=== PATIENT | male | born 1975 | race Caucasian/White ===

== ENCOUNTER 2017-12-30 07:54 | Emergency (ER) | payer MEDICAID ==
[~2017-12-30] VITALS: Ht 188 cm; Wt 86.2 kg
[2017-12-30 07:55] VITALS: BP 147/86
== END 2017-12-30 10:12 | disposition home or self-care (01) ==
LOC: ER 07:54
DX: S29.012A Strain of muscle and tendon of back wall of thorax, initial encounter (principal); F17.210 Nicotine dependence, cigarettes, uncomplicated; X50.0XXA Overexertion from strenuous movement or load, initial encounter; Y93.89 Activity, other specified; Y99.8 Other external cause status; Y92.89 Other specified places as the place of occurrence of the external cause
CPT/HCPCS: 71046

== ENCOUNTER 2018-04-09 10:23 | Emergency (ER) | payer MEDICAID ==
[~2018-04-09] VITALS: Ht 188 cm; Wt 82.1 kg
[2018-04-09 10:31] VITALS: BP 120/66
[2018-04-09 11:06] LABS: Urine Bacteria NONE SEEN /hpf (None Seen); Urine Blood Negative /uL (Negative); Urine Mucus FEW (None Seen); Urine Specific Gravity 1.041 (1.001-1.035); Urine WBC 1 /hpf (0 - 3)
== END 2018-04-09 11:04 | disposition home or self-care (01) ==
LOC: EDUNIT# 10:23 → EDBD 10:23 → ER 10:23
DX: N39.0 Urinary tract infection, site not specified (principal); L25.9 Unspecified contact dermatitis, unspecified cause; M10.9 Gout, unspecified; F17.210 Nicotine dependence, cigarettes, uncomplicated
CPT/HCPCS: 81001; 81002

== ENCOUNTER → 2019-03-29 | Emergency (ER) | payer MEDICAID ==
[~2019-03-29] VITALS: Ht 188 cm; Wt 86.2 kg
[~2019-03-29] MED LIST: HYDROcodone-ACET 7.5/325MG TAB PO ONE; KETOROLAC TROMETH 60MG/2ML VIAL IM ONE
[2019-03-29 12:30] VITALS: BP 95/63
== END | disposition home or self-care (01) ==
LOC: ER 11:55
DX: M54.41 Lumbago with sciatica, right side (principal); G89.29 Other chronic pain
CPT/HCPCS: 73502; 96372; 99283; J1885

== ENCOUNTER 2021-04-01 20:13 | Emergency (ER) | payer MEDICAID ==
[~2021-04-01] VITALS: Ht 188 cm; Wt 81.6 kg
[2021-04-01 20:18] VITALS: BP 139/95
== END 2021-04-01 20:55 | disposition left against medical advice (07) ==
LOC: ER 20:16
DX: R42 Dizziness and giddiness (principal); Z53.21 Procedure and treatment not carried out due to patient leaving prior to being seen by health care provider

== ENCOUNTER 2021-06-19 15:08 | Emergency (ER) | payer MEDICAID ==
[~2021-06-19] VITALS: Ht 188 cm; Wt 81.6 kg
[2021-06-19 16:07] VITALS: BP 164/98
[2021-06-19] MEDS ORDERED: IBUP800T27 PO (16:12)
[2021-06-19] MEDS ORDERED: CEPH500C PO (16:12)
[2021-06-19] MEDS ORDERED: IBUPROFEN 800 MG TAB PO ONE (16:15)
== END 2021-06-19 16:36 | disposition home or self-care (01) ==
LOC: ER 15:08
DX: S80.262A Insect bite (nonvenomous), left knee, initial encounter (principal); W57.XXXA Bitten or stung by nonvenomous insect and other nonvenomous arthropods, initial encounter; Y93.89 Activity, other specified; Y92.89 Other specified places as the place of occurrence of the external cause; Y99.8 Other external cause status

== ENCOUNTER 2022-01-23 22:40 | Emergency (ER) | payer MEDICAID ==
[~2022-01-23] VITALS: Ht 185.4 cm; Wt 73.0 kg
[2022-01-23 22:40] VITALS: BP 127/79
[~2022-01-23 22:40] MED LIST changes: +CEPH500C PO; -HYDROcodone-ACET 7.5/325MG TAB PO ONE; +IBUP800T27 PO; -KETOROLAC TROMETH 60MG/2ML VIAL IM ONE
== END 2022-01-24 01:07 | disposition left against medical advice (07) ==
LOC: ER 22:42
DX: S80.262A Insect bite (nonvenomous), left knee, initial encounter (principal); Z53.21 Procedure and treatment not carried out due to patient leaving prior to being seen by health care provider; W57.XXXA Bitten or stung by nonvenomous insect and other nonvenomous arthropods, initial encounter; Y93.89 Activity, other specified; Y92.89 Other specified places as the place of occurrence of the external cause; Y99.8 Other external cause status

== ENCOUNTER 2022-01-27 12:19 | Emergency (ER) | payer MEDICAID ==
[~2022-01-27] VITALS: Ht 185.4 cm; Wt 70.0 kg
[2022-01-27 12:56] VITALS: BP 126/78
[2022-01-27] MEDS ORDERED: IBUP600T27 PO (15:03)
[2022-01-27] MEDS ORDERED: BACDST PO (15:03)
== END 2022-01-27 15:12 | disposition home or self-care (01) ==
LOC: ER 12:19
DX: S80.222A Blister (nonthermal), left knee, initial encounter (principal); X58.XXXA Exposure to other specified factors, initial encounter; Y93.89 Activity, other specified; Y92.89 Other specified places as the place of occurrence of the external cause; Y99.8 Other external cause status
CPT/HCPCS: 10060

== ENCOUNTER 2022-05-03 10:35 | Emergency (ER) | payer MEDICAID ==
[~2022-05-03] VITALS: Ht 188 cm; Wt 86.8 kg
[~2022-05-03 10:35] MED LIST changes: +BACDST PO; +CEPH-510 PO; +IBUP600T27 PO
[2022-05-03 12:46] VITALS: BP 109/75
[2022-05-03] MEDS ORDERED: METH4PAK PO (13:24)
[2022-05-03] MEDS ORDERED: AZITTAB PO (13:24)
== END 2022-05-03 13:36 | disposition home or self-care (01) ==
LOC: ER 10:35
DX: U07.1 COVID-19 (principal); M10.9 Gout, unspecified; F17.210 Nicotine dependence, cigarettes, uncomplicated
CPT/HCPCS: 36415; 87426

== ENCOUNTER 2022-11-26 16:59 | Emergency (ER) | payer MEDICAID ==
[~2022-11-26] VITALS: Ht 185.4 cm; Wt 78.0 kg
[~2022-11-26 16:59] MED LIST changes: +AZITTAB PO; +IBUP-1454 PO; +IBUP-1456 PO; -IBUP600T27 PO; -IBUP800T27 PO; +METH4PAK PO
[2022-11-26] MEDS ORDERED: cefTRIAXone SOD 1,000 MG VL IM ONE (17:45)
[2022-11-26] MEDS ORDERED: PRED20TA2 PO (17:46)
[2022-11-26 18:01] VITALS: BP 127/84
== END 2022-11-26 18:05 | disposition home or self-care (01) ==
LOC: ER 16:59
DX: K12.2 Cellulitis and abscess of mouth (principal); J02.9 Acute pharyngitis, unspecified; F32.9 Major depressive disorder, single episode, unspecified; F20.9 Schizophrenia, unspecified; M10.9 Gout, unspecified; F17.210 Nicotine dependence, cigarettes, uncomplicated; F10.90 Alcohol use, unspecified, uncomplicated; Z79.1 Long term (current) use of non-steroidal anti-inflammatories (NSAID); Z79.899 Other long term (current) drug therapy
CPT/HCPCS: 96372; 99283; J0696

== ENCOUNTER 2022-12-12 21:38 | Emergency (ER) | payer MEDICAID ==
[~2022-12-12] VITALS: Ht 200.7 cm; Wt 78.9 kg
[~2022-12-12 21:38] MED LIST changes: +PRED20TA2 PO
[2022-12-12 22:30] VITALS: BP 146/65; PULSE 61; RESP 18; TEMP 98.3; O2SAT 99
[2022-12-12] MEDS ORDERED: HYDROcodone-ACET 5/325MG TAB PO ONE (23:30)
[2022-12-12] MEDS ORDERED: AMOXICILLIN/CLAVUL 875 MG TAB PO ONE (23:30)
[2022-12-12] MEDS ORDERED: IBU600T PO (23:30)
[2022-12-12] MEDS ORDERED: AUG875T PO (23:30)
[2022-12-12] MEDS ORDERED: OFL50TS OT (23:30)
== END 2022-12-12 23:53 | disposition home or self-care (01) ==
LOC: ER 21:38
DX: H66.93 Otitis media, unspecified, bilateral (principal); I10 Essential (primary) hypertension; F17.210 Nicotine dependence, cigarettes, uncomplicated; Z79.1 Long term (current) use of non-steroidal anti-inflammatories (NSAID); Z79.2 Long term (current) use of antibiotics; Z79.899 Other long term (current) drug therapy

== ENCOUNTER 2023-06-01 03:33 | Emergency (ER) | payer MEDICAID ==
[~2023-06-01] VITALS: Ht 182.9 cm; Wt 90.0 kg
[~2023-06-01 03:33] MED LIST changes: +AUG875T PO; +IBU600T PO; +OFL50TS OT
[2023-06-01] MEDS ORDERED: cefTRIAXone SOD 1,000 MG VL IM ONE (04:45)
[2023-06-01] MEDS ORDERED: IBUP-1456 PO (04:48)
[2023-06-01] MEDS ORDERED: CEPH500C PO (04:48)
[2023-06-01 06:05] VITALS: BP 144/82; PULSE 66; RESP 18; TEMP 97.6; O2SAT 98
== END 2023-06-01 06:02 | disposition home or self-care (01) ==
LOC: EDSEX 03:33 → ER 03:33 → EDBD 03:33 → ER 06:02
DX: S80.261A Insect bite (nonvenomous), right knee, initial encounter (principal); I10 Essential (primary) hypertension; M10.9 Gout, unspecified; F17.210 Nicotine dependence, cigarettes, uncomplicated; Z79.1 Long term (current) use of non-steroidal anti-inflammatories (NSAID); Z79.2 Long term (current) use of antibiotics; Z79.899 Other long term (current) drug therapy; W57.XXXA Bitten or stung by nonvenomous insect and other nonvenomous arthropods, initial encounter; Y93.89 Activity, other specified; Y92.89 Other specified places as the place of occurrence of the external cause; Y99.8 Other external cause status
CPT/HCPCS: 96372; 99283; J0696

== ENCOUNTER 2023-07-20 10:45 | Emergency (ER) | payer MEDICAID ==
[~2023-07-20] VITALS: Ht 182.9 cm; Wt 76.4 kg
[2023-07-20 10:52] VITALS: TEMP 97
[2023-07-20 11:00] VITALS: BP 139/85; PULSE 85; RESP 18; O2SAT 97
== END 2023-07-20 13:59 | disposition home or self-care (01) ==
LOC: ER 10:45
DX: S60.551A Superficial foreign body of right hand, initial encounter (principal); F15.10 Other stimulant abuse, uncomplicated; I10 Essential (primary) hypertension; M10.9 Gout, unspecified; F17.210 Nicotine dependence, cigarettes, uncomplicated; Z79.1 Long term (current) use of non-steroidal anti-inflammatories (NSAID); Z79.2 Long term (current) use of antibiotics; Z79.899 Other long term (current) drug therapy; X58.XXXA Exposure to other specified factors, initial encounter; Y93.89 Activity, other specified; Y92.89 Other specified places as the place of occurrence of the external cause; Y99.8 Other external cause status
CPT/HCPCS: 73130

== ENCOUNTER 2023-12-02 04:21 | Emergency (ER) | payer MEDICAID ==
[~2023-12-02] VITALS: Ht 185.4 cm; Wt 86.4 kg
[2023-12-02 04:52] VITALS: BP 132/92; PULSE 84; RESP 16; O2SAT 100
[2023-12-02] MEDS ORDERED: CIPRSUS OT (06:54)
== END 2023-12-02 06:57 | disposition home or self-care (01) ==
LOC: ER 04:21
DX: H66.91 Otitis media, unspecified, right ear (principal); H61.21 Impacted cerumen, right ear; I10 Essential (primary) hypertension; F17.210 Nicotine dependence, cigarettes, uncomplicated; F15.10 Other stimulant abuse, uncomplicated
CPT/HCPCS: 69209

== ENCOUNTER 2023-12-07 11:26 | Emergency (ER) | payer MEDICAID ==
[~2023-12-07] VITALS: Ht 188 cm; Wt 85.2 kg
[~2023-12-07 11:26] MED LIST changes: +CIPRSUS OT
[2023-12-07 12:09] LABS: Urine Bacteria None Seen /hpf (None Seen)
[2023-12-07 12:18] LABS: Basophils # (auto) 0.1 10 ^3/uL (0-0.2); Basophils % (auto) 0.9 % (0.0-2.0); Eosinophils # (auto) 0.1 10 ^3/uL (0-0.8); Eosinophils % (auto) 1.3 % (0.0-7.0); Hematocrit 42.4 % (41.0-53.0); Hemoglobin 14.2 g/dL (13.5-17.5); Lymphocytes # (auto) 2.1 10 ^3/uL (0.4-5.4); Lymphocytes % (auto) 22.5 % (10.0-50.0); Mean Corpuscular Hemoglobin 31.2 pg (28.0-32.0); Mean Corpuscular Hgb Conc. 33.5 g/dL (32.0-36.0); Mean Corpuscular Volume 93.1 fL (80.0-100.0); Monocytes # (auto) 0.6 10 ^3/uL (0-1.3); Neutrophils # (auto) 6.4 10 ^3/uL (1.6-8.6); Neutrophils % (auto) 69.3 % (37.0-80.0); Red Blood Cells 4.55 10^6/uL (4.5-5.90); Red Cell Distribution Width 14.4 % (11.8-14.3); White Blood Cell 9.3 10^3/uL (4.4-10.8)
[2023-12-07 12:21] LABS: Urine Blood Negative /uL (Negative); Urine Clarity Clear (Clear); Urine Color Light-Yellow (Yellow); Urine Protein, UAD Negative (Negative); Urine Specific Gravity 1.011 (1.001-1.035); Urine Urobilinogen Normal (Negative); Urine WBC <1 /hpf (0 - 3); Urine pH 6.5 (5.0-9.0)
[2023-12-07 12:34] LABS: Anion Gap 3 (5-15); Carbon Dioxide 24 mmol/L (20-30); Chloride 108 mmol/L (98-107); Sodium 135 mmol/L (136-145)
[2023-12-07 12:35] LABS: Calcium 8.9 mg/dL (8.7-10.4)
[2023-12-07 12:40] LABS: BUN/Creatinine Ratio 9.9 (10.0-20.0); Blood Urea Nitrogen 8 mg/dL (9-23); Glucose 138 mg/dL (74-106); Lipase 44 U/L (12-53)
[2023-12-07 13:22] VITALS: BP 125/89; PULSE 88; RESP 16; TEMP 97.6; O2SAT 96
== END 2023-12-08 08:25 | disposition left against medical advice (07) ==
LOC: ER 11:26
DX: K22.0 Achalasia of cardia (principal); K52.9 Noninfective gastroenteritis and colitis, unspecified; I10 Essential (primary) hypertension; F32.9 Major depressive disorder, single episode, unspecified; M10.9 Gout, unspecified; F20.9 Schizophrenia, unspecified; F17.210 Nicotine dependence, cigarettes, uncomplicated; F15.90 Other stimulant use, unspecified, uncomplicated; Z79.899 Other long term (current) drug therapy
CPT/HCPCS: 36415; 80048; 81001; 83690; 85025; 93005

== ENCOUNTER 2024-01-02 13:18 | Emergency (ER) | payer MEDICAID ==
[~2024-01-02] VITALS: Ht 188 cm; Wt 195.0 kg
[2024-01-02 13:56] VITALS: BP 123/90; PULSE 95; RESP 20; TEMP 99.4; O2SAT 95
[2024-01-02] MEDS ORDERED: COROSUS OT (14:22)
[2024-01-02] MEDS ORDERED: AUG875T PO (14:22)
== END 2024-01-02 14:28 | disposition home or self-care (01) ==
LOC: ER 13:18
DX: H60.92 Unspecified otitis externa, left ear (principal); H66.92 Otitis media, unspecified, left ear; I10 Essential (primary) hypertension; M10.9 Gout, unspecified; F32.9 Major depressive disorder, single episode, unspecified; F20.9 Schizophrenia, unspecified; F17.210 Nicotine dependence, cigarettes, uncomplicated; F15.90 Other stimulant use, unspecified, uncomplicated; Z79.899 Other long term (current) drug therapy

== ENCOUNTER 2024-07-21 09:49 | Emergency (ER) | payer MEDICAID ==
[~2024-07-21] VITALS: Ht 182.9 cm; Wt 77.5 kg
[~2024-07-21 09:49] MED LIST changes: +COROSUS OT
[2024-07-21 10:30] VITALS: BP 150/93; PULSE 85; RESP 20; O2SAT 100
== END 2024-07-21 12:45 | disposition left against medical advice (07) ==
LOC: ER 09:49
DX: Z48.00 Encounter for change or removal of nonsurgical wound dressing (principal); Z53.21 Procedure and treatment not carried out due to patient leaving prior to being seen by health care provider

== ENCOUNTER 2024-09-18 03:53 | Emergency (ER) | payer MEDICAID ==
--- NOTE | 2024-09-18 04:10 | ED.PDOC ---
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/02/24 Ciprofloxacin-Hydrocortisone (Cipro Hc 0.2-1 %) 1 Minal Minal, 4 DROP OT BID, #7.5 ML Prov:MERE GALLEGO 12/02/23 Ibuprofen (Ibuprofen) 800 Mg Tab, 1 TAB PO TID PRN, #30 TAB 0 Refills Prov:OBIE KEARNS 06/01/23 Cephalexin Monohydrate (Cephalexin) 500 Mg Cap, 1 CAP PO BID for 7 Days, #14 CAP 0 Refills Prov:OBIE KEARNS 06/01/23 Ibuprofen Micronized (MOTRIN TABLET) 600 Mg Tb, 1 TAB PO TID PRN, #20 TAB as needed for pain Prov:YOANDY SOSA [employer] 12/12/22 Ofloxacin (Otic) (FLOXIN OTIC) [address], 5 DROP OT BID for 10 Days, #10 ML each ear Prov:YOANDY [employer]OSA [employer] 12/12/22 Amoxicillin & Pot Clavulanate (AUGMENTIN TABLET) 875 Mg Tb, 1 TAB PO BID for 10 Days, #20 TAB Prov:YOANDY [employer]OS[employer] 12/12/22 Prednisone (Prednisone) 20 Mg Tab, 60 MG PO DAILY, #15 MG Prov:MERE GALLEGO 11/26/22 Methylprednisolone (Medrol Dosepak) 4 Mg Boogie, 4 MG PO UD, #21 TAB UAD Prov:SOFIA TRIMBLE [employer] 05/03/22 Azithromycin (Zithromax Z-Boogie) 250 Mg Tab, 250 MG PO DAILY, #1 PACK TAke 2 tabs day 1,Then 1 tab day 2-5 Prov:SOFIA [employer]BLE [employer] 05/03/22 Cephalexin ( Keflex 500) 500 Mg Cap, 1 CAP PO QID for 7 Days, #28 CAP 0 Refills Prov:SADIE JORGENSEN 04/06/22 Ibuprofen (Ibuprofen) 600 Mg Tab, 600 MG PO TID, #30 TAB Prov:MERE GALLEGO 01/27/22 Sulfamethoxazole W/Trimethopri (Bactrim Ds Tablet) 1 Tab Tb, 1 TAB PO BID for 10 Days, #20 TAB Prov:MERE GALLEGO 01/27/22 Ibuprofen (Ibuprofen) 800 Mg Tab, 800 MG PO TID PRN, #24 TAB Prov:MERE GALLEGO 06/19/21 Cephalexin Monohydrate (Cephalexin) 500 Mg Cap, 500 MG PO QID for 10 Days, #40 CAP Prov:MERE GALLEGO 06/19/21 Information Source: Patient Past Medical History PAST MEDICAL HISTORY: Depression, Gout, HTN, Schizophrenia Surgical History: Denies all surgeries Family History Family History: Reviewed,noncontributory to illness Social History Smoker: Cigarettes, Less Than 1 Pack/Day Alcohol: Occasionally Drugs: Methamphetamine Lives In: Home Was a procedure done? Was a procedure done?: No Back Pain Differential Dx Differential Diagnosis: Fracture, Musculoskeletal Pain Time of 1ST Reevaluation: 04:09 Reevaluation 1ST: Unchanged Patient Education/Counseling: Diagnosis, Treatment, Prognosis, Need For Follow Up Family Education/Counseling: No Family Present Departure 1 Departure Disposition: 01 HOME / SELF CARE / HOMELESS Condition: Stable Discharged With: Self Critical Care Note Critical Care Time?: No Stability Stability form required: TYREE Zendejas [facility] September 18, 2024 04:10
== END 2024-09-18 04:09 | disposition left against medical advice (07) ==
LOC: ER 03:53
DX: R68.89 Other general symptoms and signs (principal); Z53.21 Procedure and treatment not carried out due to patient leaving prior to being seen by health care provider